=== PATIENT | female | born 1970 | race Caucasian/White ===

== ENCOUNTER 2016-10-08 17:26 | Emergency (ER) | payer SELFPAY ==
[~2016-10-08] VITALS: Ht 162.6 cm; Wt 85.0 kg
[~2016-10-08 17:26] MED LIST: ACET500C5 PO; CETI10CA PO; DENIES; GUAI118L94 PO; IBUP-1542 PO
[2016-10-08 17:35] VITALS: Ht 162.6 cm; Wt 85.0 kg
[2016-10-08] MEDS ORDERED: HYDROCODONE/APAP (5/325) TAB PO ONE (20:00)
--- NOTE | 2016-10-08 20:56 | RADRPT ---
PROCEDURE: XR right great toe CLINICAL INDICATION: Crush injury TECHNIQUE: AP, oblique, and lateral radiographs were submitted. COMPARISON: None FINDINGS: Osseous structures: appear well mineralized and intact with no fracture or destructive process iden tified. Joint spaces: are well maintained, with no significant spurring, erosion or joint effusion evident. Soft tissues: There is slight irregularity in the region of the nail bed of the right great toe. IMPRESSION: 1. Soft tissue irregularity at the nail bed of the right great toe. 2. No fracture or dislocation is evident. Physician Lynn Date Time Electronically viewed and signed by Physician Lynn on 10/08/2016 20:56 /
--- NOTE | 2016-10-08 21:15 | ERD ---
ER Documentation Chief Complaint Date/Time DATE: 10/08/16 TIME: 21:10 Chief Complaint RT BIG TOE INJURY HPI Is a 46-year-old female who presents emergency department today complaining of right great toe pain and bleeding after sustaining an injury earlier today. Patient is here with her son who states that patient was chasing after 1 of her kids when the door got slammed on her went over her toe when she feels that the toenail got pushed backwards. States she is concerned that there is infection because there is fungus underneath it. Denies any previous trauma. ROS All systems reviewed and are negative except as per history of present illness. Medications Home Meds Active Scripts Naproxen* (Naprosyn*) 500 Mg Tablet, 500 MG PO BID Y for PAIN AND/OR INFLAMMATION, #30 TAB Prov:CHERIE BUTT PA-C 10/08/16 Hydrocodone/Acetaminophen ([place] 5-325 Tablet) 1 Each Tablet, 1 TAB PO Q6H Y for PAIN, #15 TAB Prov:CHERIE BUTT PA-C 10/08/16 Ibuprofen* (Ibuprofen*) 600 Mg Tablet, 600 MG PO Q6H Y for PAIN AND OR ELEVATED TEMP, #30 TAB Prov:JAYE HAZEL NP 05/30/15 Cetirizine Hcl* (Zyrtec*) 10 Mg Capsule, 10 MG PO DAILY, #30 TAB Prov:JAYE HAZEL NP 05/30/15 Acetaminophen* (Tylophen*) 500 Mg Capsule, 500 MG PO Q6H Y for PAIN AND OR ELEVATED TEMP, #30 TAB Prov:JAYE HAZEL NP 05/30/15 Guaifenesin-Codeine Phosphate* (Guaifenesin* with Codeine Liq) 120 Ml Liquid, 5 ML PO Q4H Y for COUGH, #60 ML Prov:JAYE HAZEL NP 05/30/15 Reported Medications [Denies] No Conflict Check 07/21/11 Allergies Allergies: Coded Allergies: No Known Drug Allergies (Verified Allergy, Mild, 07/21/11) PMhx/Soc Medical and Surgical Hx: pt denies Medical Hx History of Surgery: Yes (CSECTION) Anesthesia Reaction: No Hx Neurological Disorder: No Hx Respiratory Disorders: No Hx Cardiac Disorders: No Hx Psychiatric Problems: No Hx Miscellaneous Medical Probl: No Hx Alcohol Use: No Hx Substance Use: No Hx Tobacco Use: No Physical Exam Vitals Vital Signs Date Time Temp Pulse Resp B/P Pulse Ox O2 Delivery O2 Flow Rate FiO2 10/08/16 17:35 98.1 74 18 121/67 99 Physical Exam Const: No acute distress Head: Atraumatic Eyes: Normal Conjunctiva ENT: Normal External Ears, Nose and Mouth. Neck: Full range of motion..~ No meningismus. Resp: Clear to auscultation bilaterally Cardio: Regular rate and rhythm, no murmurs Skin: No petechiae or rashes MSK: Right great toe with no obvious deformity. Evidence of bleeding that is well controlled. Evidence of fungus under toenail. Nail is attached at the nailbed. Tenderness palpation diffusely right great toe. Pulses 2+. Distal neurovascularly intact per Neur: Awake and alert Psych: Normal Mood and Affect Results 24 hrs Current Medications Medications (Trade) Dose Ordered Sig/Lien Route PRN Reason Start Time Stop Time Status Last Admin Dose Admin Acetaminophen/ Hydrocodone Bitart ([place] (5/325)) 1 tab ONCE ONCE PO 10/08/16 20:00 10/08/16 20:01 DC 10/08/16 20:11 DIAGNOSTIC IMAGING REPORT Patient: TREVON GONSALVES : 1970 Age: 46 Sex: F MR #: [id number] DOS: 10/08/16 0000 Ordering MD: CHERIE BUTT PA-C Location: [facility] Room/Bed: PROCEDURE: XR right great toe CLINICAL INDICATION: Crush injury TECHNIQUE: AP, oblique, and lateral radiographs were submitted. COMPARISON: None FINDINGS: Osseous structures: appear well mineralized and intact with no fracture or destructive process identified. Joint spaces: are well maintained, with no significant spurring, erosion or joint effusion evident. Soft tissues: There is slight irregularity in the region of the nail bed of the right great toe. IMPRESSION: 1. Soft tissue irregularity at the nail bed of the right great toe. 2. No fracture or dislocation is evident. Physician Lynn Date Time Electronically viewed and signed by Physician Lynn on 10/08/2016 20:56 RH/ CC: CHERIE BUTT PA-C Procedures/MDM This 46-year-old female who presents to the emergency department today for right great toe pain. Patient was initially seen by myself in the [facility] area however patient was requesting an x-ray and pain medication given the trauma. Per the radiology report images of the right great toe show soft tissue irregularity at the nailbed of the right great toe. There is no fracture or dislocation. Joint spaces are well-maintained with no significant spurring, erosion or joint effusion evident. Patien symptoms at this time is consistent with nailbed injury, contusion. Low suspicion for septic joint or gout. Patient's toenails still attached to the nailbed and I do not feel that removing the toenail is beneficial at this time. Patient was given [place] here in the emergency department. She was also placed an orthosis and given crutches. She will be given a prescription for [place] Naprosyn for home. Wound was cleaned here in the emergency department as well. Patient was instructed not to drive if she felt uncomfortable in the ortho shoe At this time the patient is stable for discharge and outpatient management. Patient should follow up with their PCP in the next 1-2 days. They may return to the emergency department sooner for any persistent or worsening of symptoms. Patient understood and agreed with the plan. Departure Diagnosis: Primary Impression: Injury of toe Encounter type: initial encounter Laterality: right Qualified Code: S99.921A - Injury of toe, right, initial encounter Condition: Fair CHERIE BUTT PA-C October 08, 2016 21:15
[2016-10-08] MEDS ORDERED: NAPR-260 PO (21:25)
[2016-10-08] MEDS ORDERED: HYDR-906 PO (21:25)
[2016-10-08 21:45] VITALS: BP 120/74; PULSE 72; RESP 18; TEMP 98.1
== END 2016-10-08 21:27 | disposition home or self-care (01) ==
LOC: FTE 17:26
DX: S99.921A Unspecified injury of right foot, initial encounter (principal); W22.09XA Striking against other stationary object, initial encounter; Y92.9 Unspecified place or not applicable
CPT/HCPCS: 73660